=== PATIENT | male | born 1940 | race Caucasian/White ===

== ENCOUNTER 2024-08-06 09:47 | Emergency (ER) | payer MEDICARE, OTHER ==
[2024-08-06 09:55] VITALS: BP 172/83; PULSE 80
[2024-08-06] MEDS ORDERED: Sodium Chloride 0.9% 10 ML Syringe FLUSH PRN (10:00)
[2024-08-06 10:11] LABS: BASOPHILS ABSOLUTE AUTO 0.02 K/uL (0.00-0.20); BASOPHILS PERCENT AUTO 0.2 % (0.0-2.0); EOSINOPHILS ABSOLUTE AUTO 0.01 K/uL (0.00-0.50); EOSINOPHILS PERCENT AUTO 0.1 % (0.0-5.0); HEMATOCRIT 36.5 % (39.0-49.0); HEMOGLOBIN 12.3 g/dL (13.1-16.8); IMMATURE GRAN ABSOLUTE AUTO 0.04 10^3/uL (0.00-0.04); IMMATURE GRAN PERCENT AUTO 0.4 % (0.0-0.4); LYMPHOCYTES ABSOLUTE AUTO 0.51 K/uL (0.50-3.50); LYMPHOCYTES PERCENT AUTO 5.7 % (10.0-50.0); MEAN CORPUSCULAR HEMOGLOBIN 33.3 pg (28.2-33.3); MEAN CORPUSCULAR HGB CONC 33.7 g/dL (31.7-36.0); MEAN CORPUSCULAR VOLUME 98.9 fL (84.0-98.0); MONOCYTES ABSOLUTE AUTO 0.82 K/uL (0.00-1.00); MONOCYTES PERCENT AUTO 9.2 % (2.0-14.0); NEUTROPHILS ABSOLUTE AUTO 7.55 K/uL (1.40-7.00); NEUTROPHILS PERCENT AUTO 84.4 % (45.0-80.0); PLATELET COUNT,PLT 141 K/uL (150-350); RED BLOOD CELL COUNT 3.69 M/uL (4.33-5.41)
[2024-08-06 10:29] LABS: ALBUMIN 3.5 g/dL (3.4-5.0); ANION GAP 8.8 meq/L (7-15); BILIRUBIN TOTAL 1.2 mg/dL (0.2-1.0); CALCIUM 8.3 mg/dL (8.5-10.1); CARBON DIOXIDE,CO2 26.2 mmol/L (21.0-32.0); CREATININE 1.66 mg/dL (0.51-1.17); EST CRCL DRUG DOSING (CG) 37.17 mL/min; POTASSIUM,K 4.1 mmol/L (3.5-5.1); PROTEIN TOTAL,TP 7.3 g/dL (6.4-8.2)
[2024-08-06 11:14] LABS: PROTHROMBIN TIME 10.4 SEC (9.0-11.1)
== END 2024-08-06 12:45 | disposition home or self-care (01) ==
LOC: LL.ED 09:47
DX: S00.11XA Contusion of right eyelid and periocular area, initial encounter (principal); U07.1 COVID-19; W19.XXXA Unspecified fall, initial encounter
CPT/HCPCS: 36415; 70450; 71250; 72125; 80053; 82550; 85025; 85610; 87426-QW; 99283; 99284